=== PATIENT | male | born 1995 | race Two or more races ===

== ENCOUNTER 2020-07-08 05:57 | Emergency (ER) | payer BC, OTHER ==
--- NOTE | 2020-07-08 06:37 | EDM.PDOC ---
ED HPI GENERAL MEDICAL PROBLEM - General Chief Complaint: Respiratory Problem Stated Complaint: SOB,UNABLE TO TASTE OR SMELL Time Seen by Provider: 07/08/20 06:17 Source of Information: Reports: Patient History Limitations: Reports: No Limitations - History of Present Illness INITIAL COMMENTS - FREE TEXT/NARRATIVE: Mr. Marie is a very pleasant 25-year-old man with no chronic medical problems, who now presents the ED with a complaint of experiencing a headache and stuffy nose on . His symptoms did not persist, however, he then developed a loss of taste and smell on 07/06/2020, which has persisted. He states that he coughed briefly on Sunday, but has not since. He states that he felt generally fatigued, dyspneic, and dizzy when he got up to use the restroom this morning, which prompted him to come to the ED. he thinks that he may have had a panic attack her, although was concerned about COVID-19. No recent fever. No recent nausea, vomiting, constipation, or diarrhea. He has not taken any [id number] or home remedies. The patient states that he is tested for COVID-19 once a week, with his most recent test this past 07/06/2020. He expects to get the results today. Here in the ED, the patient's initial BP is found to be slightly elevated at 141/71, otherwise, he is hemodynamically stable, afebrile, saturating 100% on room air. Prior to 07/05/2020, the patient denies having a recent fever, chills, sore throat, ear pain, nasal or sinus congestion, cough, dyspnea, chest pain, palpitations, nausea, vomiting, constipation, diarrhea, abdominal pain, urinary symptoms, recent weight gain or weight loss, recent bloody bowel movements or black bowel movements, recent joint aches, headaches, or rashes. The patient does not have a PCP. - Related Data Allergies Allergy/AdvReac Type Severity Reaction Status Date / Time No Known Allergies Allergy Verified 07/08/20 06:08 Home Meds: Home Meds . [No Known Home Meds] 02/12/19 [History] Past Medical History - Past Surgical History HEENT Surgical History: Reports: Oral Surgery (dental extraction) Musculoskeletal Surgical History: Reports: Other (See Below) (Right 5th finger crush injury repair) Social & Family History - Family History Family Medical History: Noncontributory - Tobacco Use Smoking Status *Q: Never Smoker Tobacco Use Within Last Twelve Months: Vaping (Nicotine) - Alcohol Use Alcohol Use History: Yes Alcohol Use Frequency: Rarely - Recreational Drug Use Recreational Drug Use: No - Living Situation & Occupation Living situation: Reports: Single, with Family Occupation: Employed ([employer]) ED ROS GENERAL - Review of Systems Review Of Systems: Comprehensive ROS is negative, except as noted in HPI. ED EXAM, GENERAL - Physical Exam Exam: See Below Exam Limited By: No Limitations General Appearance: Alert, WD/WN, No Apparent Distress Eye Exam: Bilateral Eye: EOMI, Normal Inspection Ears: Normal External Exam, Hearing Grossly Normal Nose: Normal Inspection Throat/Mouth: Normal Inspection, Normal Lips, Normal Voice, No Airway Compromise Head: Atraumatic, Normocephalic Neck: Normal Inspection, Full Range of Motion Respiratory/Chest: No Respiratory Distress, Lungs Clear, Normal Breath Sounds, No Accessory Muscle Use. No: Decreased Breath Sounds, Crackles, Rhonchi, Wheezing, Stridor, Prolonged Expiration Cardiovascular: Normal Peripheral Pulses, Regular Rate, Rhythm, No Edema, No Gallop, No JVD, No Murmur, No Rub Peripheral Pulses: 3+: Radial (L), Radial (R) GI/Abdominal: Normal Bowel Sounds, Soft, Non-Tender, No Organomegaly, No Distention, No Abnormal Bruit, No Mass Back Exam: Normal Inspection, Full Range of Motion, NT Extremities: Normal Inspection, Normal Range of Motion, No Pedal Edema, Normal Capillary Refill Neurological: Alert, Oriented, Normal Cognition, No Motor/Sensory Deficits Psychiatric: Normal Affect Skin Exam: Warm, Dry, Intact, Normal Color, No Rash Course - Vital Signs Last Recorded V/S: Last Vital Signs Temp 37.0 C 07/08/20 06:04 Pulse 72 07/08/20 06:04 Resp 20 07/08/20 06:04 BP 141/71 H 07/08/20 06:04 Pulse Ox 100 07/08/20 06:04 - Orders/Labs/Meds Orders: Active Orders 24 hr Category Date Time Status Chest 2V [CR] Stat Exams 07/08/20 06:32 Taken - Re-Assessments/Exams Free Text/Narrative Re-Assessment/Exam: 07/08/20 06:32 As above, the patient had a headache on 07/05/2020, and a stuffy nose, which resolved, then developed a loss of taste and smell on 07/06/2020, which has persisted, then had brief fatigue, dizziness, and dyspnea when he woke up to use the restroom this morning. No recent fever, and he is afebrile here in the ED, with an oxygen saturation of 100% on room air. His physical exam is completely benign. While it is certainly possible that the patient has COVID- 19, I do not believe that his transient symptoms of fatigue, dizziness, and lightheadedness this morning are related to that, rather, therefore more likely to have been due to a panic attack, which the patient himself volunteered. He states that he was swabbed for the SARS-CoV-2 virus on Sunday, and expects to get the results today, therefore there is no point in repeating a test here in the ED number; because the patient's oxygen saturation is 100% on room air, there is no recommended treatment, and therefore the patient would not be a candidate for being admitted, therefore the only test that we could perform would be the send out test, the same as he had on Sunday, which would result in 48 to 72 hours. For today's purposes, therefore, I am recommending a baseline chest x-ray, in case he does require COVID-19 and becomes ill. I do not see an indication for any other tests at this time. 07/08/20 07:18 Two-view chest radiograph appears to be grossly normal. The cardiac silhouette is within normal limits. No pulmonary vascular congestion. No pleural effusions. No focal infiltrate. No pneumothorax. Formal read per the Radiologist pending. Departure - Departure Time of Disposition: 07:19 Disposition: Home, Self-Care 01 Condition: Good Clinical Impression: Fatigue, Dyspnea, Ageusia, Anosmia - Discharge Information *PRESCRIPTION DRUG MONITORING PROGRAM REVIEWED*: Not Applicable *COPY OF PRESCRIPTION DRUG MONITORING REPORT IN PATIENT YASSINE: Not Applicable Referrals: Heather Meyer NP [Nurse Practitioner] - Forms: ED Department Discharge Additional Instructions: You were seen in the emergency room after experiencing a headache and a stuffy nose on Sunday, loss of taste and smell since Sunday, then shortness of breath with fatigue and dizziness this morning. Work-up in the ER included a chest x-ray, which was completely normal. As discussed, it is possible that you have COVID-19, however, because your oxygen saturation was 100% on room air in the ER, no treatment would be recommended, even if found to be positive. If the test for COVID-19 that you had on Sunday returns positive, you need to quarantine until you tested negative. This may take a couple of weeks, although, in some cases, can take months. Follow-up with Heather Meyer NP, or one of the other providers in the clinic, as needed. If any other problems, please do not hesitate to return to the ER. Sepsis Event Note (ED) - Evaluation Sepsis Screening Result: No Definite Risk - Focused Exam Vital Signs: Vital Signs Temp Pulse Resp BP Pulse Ox 07/08/20 06:04 37.0 C 72 20 141/71 H 100 - My Orders Last 24 Hours: My Active Orders 07/08/20 06:32 Chest 2V [CR] Stat - Assessment/Plan Last 24 Hours: My Active Orders 07/08/20 06:32 Chest 2V [CR] Stat
--- NOTE | 2020-08-04 09:28 | CR ---
PROCEDURE INFORMATION: Exam: XR Chest, 2 Views Exam date and time: 07/08/2020 6:49 AM Age: 25 years old Clinical indication: Other: Baseline, in case he has covid-19. Under covid-19 precautions. TECHNIQUE: Imaging protocol: XR of the chest Views: 2 views. COMPARISON: No relevant prior studies available. FINDINGS: Lungs: Normal trena. Normal pulmonary vascularity. No segmental infiltrate. Pleural space: No pleural effusion. No pneumothorax. Heart/Mediastinum: Normal heart. Normal mediastinum and aorta. Bones/joints: Mild scoliosis. No focal bony lesions. IMPRESSION: Negative CXR for acute cardiopulmonary process. Thank you for allowing us to participate in the care of your patient. Dictated and Authenticated by: Humble Raygoza MD 08/04/2020 9:47 AM Central Time ([place] & [place]) JONI
== END 2020-07-08 07:55 | disposition home or self-care (01) ==
LOC: JD.ED 05:57
DX: R43.0 Anosmia (principal); R43.2 Parageusia; R53.83 Other fatigue; R06.00 Dyspnea, unspecified
CPT/HCPCS: 71046; 71046-26; 99282; 99284-25